=== PATIENT | female | born 1965 | race Caucasian/White ===

== ENCOUNTER 2021-02-20 06:22 | Day surgery (SDC) | payer OTHER, SELFPAY ==
[~2021-02-20] VITALS: Ht 170.2 cm; Wt 67.1 kg
[2021-02-20] MEDS ORDERED: fentaNYL citrate 0.05 MG/ML VIAL ONE (07:20)
[2021-02-20] MEDS ORDERED: LIDOCAINE 2% 100 MG/5 ML UJET TP ONE (07:20)
[2021-02-20] MEDS ORDERED: diphenhydrAMINE 50 MG/ML VIAL ONE (07:20)
[2021-02-20] MEDS ORDERED: MIDAZOLAM 5 MG/5 ML VIAL ONE (07:20)
[2021-02-20] MEDS ORDERED: diphenhydrAMINE 50 MG/ML VIAL IVP SCH (12:40)
[2021-02-20] MEDS ORDERED: fentaNYL citrate 0.05 MG/ML VIAL IVP SCH (12:40)
[2021-02-20] MEDS ORDERED: MIDAZOLAM 2 MG/2 ML VIAL IVP SCH (12:40)
== END 2021-02-20 11:40 | disposition home or self-care (01) ==
LOC: MOR 06:22 → MMU 06:24 → MOR 11:40
PROVIDERS: ATTEND Internal Medicine Gastroenterology
DX: Z12.11 Encounter for screening for malignant neoplasm of colon (principal); K63.5 Polyp of colon; K62.1 Rectal polyp; I10 Essential (primary) hypertension; Z90.710 Acquired absence of both cervix and uterus; Z79.899 Other long term (current) drug therapy; Z20.822 Contact with and (suspected) exposure to COVID-19
CPT/HCPCS: 45380; 45385; 87426; J1200; J2250; J3010